=== PATIENT | male | born 1970 | race Caucasian/White ===

== ENCOUNTER 2019-05-04 15:53 | Emergency (ER) | payer SELFPAY ==
[2019-05-04] MEDS ORDERED: NA CHLORIDE 0.9% 500 ML ONE (16:20)
[2019-05-04] MEDS ORDERED: ONDANSETRON 4 MG/2 ML VIAL ONE (16:20)
[2019-05-04] MEDS ORDERED: MORPHINE 4 MG/ML SYR ONE (16:20)
[2019-05-04 16:43] LABS: Absolute Lymphocytes (CBC) 3.1 K/uL (0.7-4.9); Basophils % 0.7 % (0-1.3); Hematocrit 49.1 % (39.6-49.0); Lymphocytes % 29.6 % (15.3-44.8); MPV 8.4 fL (7.6-11.3)
[2019-05-04 17:04] LABS: ALT/SGPT 48 U/L (12-78); AST/SGOT 24 U/L (15-37); Albumin 3.6 g/dL (3.4-5.0); Alkaline Phosphatase 84 U/L (45-117); BUN Blood Urea Nitrogen 10 mg/dL (7-18); Bicarbonate 28 mmol/L (21-32); Bilirubin Direct < 0.1 mg/dL (0-0.2); Bilirubin Total 0.3 mg/dL (0.2-1.0); Glucose Level 98 mg/dL (74-106); Lipase 1394 U/L (73-393); Potassium 3.9 mmol/L (3.5-5.1); Protein, Total 7.5 g/dL (6.4-8.2); Sodium Level 140 mmol/L (136-145)
--- NOTE | 2019-05-04 17:38 | RAD REPORT ---
EXAM DESCRIPTION: CT - Abdomen Pelvis W Contrast - 05/04/2019 5:27 pm CLINICAL HISTORY: Abdominal pain COMPARISON: none. TECHNIQUE: Computed axial tomography of the abdomen pelvis was obtained. 100 cc Isovue-300 was admin istered intravenously. Oral contrast was not requested which limits evaluation of bowel. All CT scans are performed using dose optimization technique as appropriate and may include automated exposure control or mA/KV adjustment according to patient size. FINDINGS: The liver, spleen, pancreas, adrenal and kidneys appear unremarkable. There is no evidence of diverticulitis. Normal appendix IMPRESSION: No acute abnormality is displayed.
--- NOTE | 2019-05-04 18:00 | ER ---
Nurse's Notes [facility] Name: Jose Rudd Age: 49 yrs Sex: Male : 1970 Arrival Date: 05/04/2019 Time: 15:55 Bed 14 Private MD: Diagnosis: Abdominal and pelvic pain;Acute pancreatitis Presentation: 05/04 16:02 Presenting complaint: Patient states: L flank pain that radiates towards LUQ with abd ss bloating that began "a few weeks ago". Transition of care: patient was not received from another setting of care. Onset of symptoms was April 2019. Risk Assessment: Do you want to hurt yourself or someone else? Patient reports no desire to harm self or others. Initial Sepsis Screen: Does the patient meet any 2 criteria? No. Patient's initial sepsis screen is negative. Does the patient have a suspected source of infection? No. Patient's initial sepsis screen is negative. Care prior to arrival: None. 16:02 Method Of Arrival: Ambulatory ss 16:02 Acuity: TONY 3 ss Historical: - Allergies: 16:05 No Known Allergies; ss - Home Meds: 16:05 None [Active]; ss - PMHx: 16:05 None; ss - PSHx: 16:05 None; ss - Immunization history:: Adult Immunizations up to date. - Social history:: Smoking status: Patient/guardian denies using tobacco. - Ebola Screening: : Patient denies exposure to infectious person Patient denies travel to an Ebola-affected area in the 21 days before illness onset. Screenin:00 Fall Risk IV access (20 points). mg2 18:06 Abuse screen: Denies threats or abuse. Denies injuries from another. Nutritional mg2 screening: No deficits noted. Tuberculosis screening: No symptoms or risk factors identified. Assessment: 17:00 General: Appears in no apparent distress. comfortable, Behavior is calm, cooperative. mg2 Neuro: Level of Consciousness is awake, alert, obeys commands, Oriented to person, place, time, situation. Cardiovascular: Capillary refill < 3 seconds Patient's skin is warm and dry. Respiratory: Airway is patent Respiratory effort is even, unlabored, Respiratory pattern is regular, symmetrical. GI: Bowel sounds present X 4 quads. Abd is soft Reports lower abdominal pain, upper abdominal pain. : Urine is clear. EENT: No signs and/or symptoms were reported regarding the EENT system. Derm: Skin is intact, is healthy with good turgor, Skin is pink, warm \\T\\ dry. normal. Musculoskeletal: Circulation, motion, and sensation intact. Capillary refill < 3 seconds. 18:05 Pain: Complains of pain in left lower quadrant. mg2 Vital Signs: 16:02 BP 140 / 91; Pulse 85; Resp 16; Temp 98.9(TE); Pulse Ox 98% on R/A; Weight 104.33 kg; ss Height 5 ft. 9 in. (175.26 cm); Pain 5/10; 18:05 BP 122 / 88; Pulse 71; Resp 18; Pulse Ox 99% on R/A; mg2 16:02 Body Mass Index 33.96 (104.33 kg, 175.26 cm) ED Course: 15:55 Patient arrived in ED. mr 16:02 Arm band placed on right wrist. ss 16:04 Triage completed. ss 16:05 [facility]C [facility] la1 16:05 Stanislav Farris MD is Attending Physician. la1 16:24 Inserted saline lock: 22 gauge in right antecubital area, using aseptic technique. kj1 Blood collected. 16:25 Jericho Del Angel, KELSEY is Primary Nurse. mg2 16:28 Initial lab(s) drawn, by me, sent to lab. kj1 17:27 CT Abd/Pelvis - IV Contrast Only In Process Unspecified. EDMS 18:06 Patient has correct armband on for positive identification. mg2 18:07 No provider procedures requiring assistance completed. mg2 18:29 IV discontinued, intact, bleeding controlled, No redness/swelling at site. Pressure mg2 dressing applied. Administered Medications: 16:29 Drug: NS 0.9% 500 ml Route: IV; Rate: bolus; Site: right antecubital; mg2 18:07 Follow up: Response: No adverse reaction; IV Status: Completed infusion; IV Intake: mg2 500ml 16:30 Drug: morphine 4 mg Route: IVP; Site: right antecubital; mg2 18:08 Follow up: Response: No adverse reaction; Marked relief of symptoms; RASS: Alert and mg2 Calm (0) 16:30 Drug: Zofran 4 mg Route: IVP; Site: right antecubital; mg2 18:07 Follow up: Response: No adverse reaction; Marked relief of symptoms mg2 Intake: 18:07 IV: 500ml; Total: 500ml. mg2 Outcome: 17:58 Discharge ordered by MD. coleman 18:29 Discharged to home ambulatory. mg2 18:29 Condition: good 18:29 Discharge instructions given to patient, Instructed on discharge instructions, follow up and referral plans. medication usage, Demonstrated understanding of instructions, follow-up care, medications, Prescriptions given X 3. 18:29 Patient left the ED. mg2 Signatures: Dispatcher [employer] Mariya Sharma mr Terese Minor, RN RN ss Fabio Jacobo, PSYCHOLOGIST RESEARCH ASSISTANT-C PSYCHOLOGIST RESEARCH ASSISTANT-Cla1 Jericho Del Angel RN RN mg2 Ginger Figueroa1
--- NOTE | 2019-05-04 18:00 | EDPHYS ---
Physician Documentation [facility] Name: Jose Rudd Age: 49 yrs Sex: Male : 1970 Arrival Date: 05/04/2019 Time: 15:55 Bed 14 Private MD: ED Physician Stanislav Farris HPI: 05/04 16:20 This 49 yrs old Male presents to ER via Ambulatory with complaints of la1 Abdominal Pain, Abdominal Swelling. 16:20 The patient presents with abdominal pain abdominal distention. Onset: The la1 symptoms/episode began/occurred 1 week(s) ago. The symptoms do not radiate. The symptoms are described as sharp. Modifying factors: The symptoms are alleviated by nothing, the symptoms are aggravated by alcohol. Severity of pain: At its worst the pain was moderate. The patient has not experienced similar symptoms in the past. Historical: - Allergies: 16:05 No Known Allergies; ss - Home Meds: 16:05 None [Active]; ss - PMHx: 16:05 None; ss - PSHx: 16:05 None; ss - Immunization history:: Adult Immunizations up to date. - Social history:: Smoking status: Patient/guardian denies using tobacco. - Ebola Screening: : Patient denies exposure to infectious person Patient denies travel to an Ebola-affected area in the 21 days before illness onset. ROS: 16:22 Constitutional: Negative for fever, chills, and weight loss, Eyes: Negative for injury, la1 pain, redness, and discharge, ENT: Negative for injury, pain, and discharge, Neck: Negative for injury, pain, and swelling, Cardiovascular: Negative for chest pain, palpitations, and edema, Respiratory: Negative for shortness of breath, cough, wheezing, and pleuritic chest pain. 16:22 Back: Negative for injury and pain, : Negative for injury, bleeding, discharge, and swelling, MS/Extremity: Negative for injury and deformity, Neuro: Negative for headache, weakness, numbness, tingling, and seizure. 16:22 Abdomen/GI: Positive for abdominal pain. Exam: 16:23 Constitutional: This is a well developed, well nourished patient who is awake, alert, la1 and in no acute distress. Head/Face: Normocephalic, atraumatic. Eyes: Pupils equal round and reactive to light, extra-ocular motions intact. Lids and lashes normal. Conjunctiva and sclera are non-icteric and not injected. Cornea within normal limits. Periorbital areas with no swelling, redness, or edema. ENT: Mucous membranes moist. Neck: No Meningismus. Chest/axilla: Normal chest wall appearance and motion. Nontender with no deformity. No lesions are appreciated. Cardiovascular: Regular rate and rhythm with a normal S1 and S2. No gallops, murmurs, or rubs. Normal PMI, no JVD. No pulse deficits. Respiratory: Lungs have equal breath sounds bilaterally, clear to auscultation No rales, rhonchi or wheezes noted. No increased work of breathing, no retractions or nasal flaring. 16:23 Abdomen/GI: Inspection: abdomen appears normal, Bowel sounds: normal, Palpation: soft, in all quadrants, mild abdominal tenderness, in the suprapubic area and left lower quadrant, Indicators: McBurney's point is not tender, Mancia's sign is negative, Rovsing's sign is negative, Obturator sign is negative, Psoas sign is negative. Vital Signs: 16:02 BP 140 / 91; Pulse 85; Resp 16; Temp 98.9(TE); Pulse Ox 98% on R/A; Weight 104.33 kg; ss Height 5 ft. 9 in. (175.26 cm); Pain 5/10; 18:05 BP 122 / 88; Pulse 71; Resp 18; Pulse Ox 99% on R/A; mg2 16:02 Body Mass Index 33.96 (104.33 kg, 175.26 cm) ss MDM: 16:05 Patient medically screened. la1 17:56 Data reviewed: vital signs, nurses notes, radiologic studies, I have discussed the la1 patient's presentation/case with the attending Emergency Department Physician; and as a result, I will discharge patient. Data interpreted: Pulse oximetry: on room air is 98 %. Counseling: I had a detailed discussion with the patient and/or guardian regarding: the historical points, exam findings, and any diagnostic results supporting the discharge/admit diagnosis, the presence of at least one elevated blood pressure reading (>120/80) during this emergency department visit, lab results, radiology results, the need for outpatient follow up. Medication response: Response to treatment: the patient's symptoms have markedly improved after treatment. Special discussion: Based on the patient's Hx, exam, and Dx evaluation, there is no indication for emergent surgery or inpatient Tx. It is understood by the patient/guardian that if the Sx's persist or worsen they need to return immediately for re-evaluation. I discussed with the patient/guardian that the patient's current presentation does not indicate dosing of antibiotics. They should follow-up with their primary care provider and return if the symptoms persist or progress. ED course: Pt offered admission for apparent pancreatitis, pt declined, states he wants to go home on clear liquids for a few days and see if he gets better that way, strict return precautions given. Pt not vomiting, vital signs WNL, no signs of complications of pancreatitis on CT. PT reliable with transportation and social support. Pt verbalizes understanding of return precautions. . 18:10 Refusal of service: The patient/guardian displays adequate decision making capability la1 and despite a detailed discussion of alternatives, benefits, risks, and consequences refuses: Admission to the hospital for further work-up and treatment. 05/04 16:14 Order name: Basic Metabolic Panel; Complete Time: 17:47 la05/04 16:14 Order name: CBC with Diff; Complete Time: 17:47 la05/04 16:14 Order name: Creatinine for Radiology; Complete Time: 17:47 la05/04 16:14 Order name: Hepatic Function; Complete Time: 17:47 la05/04 16:14 Order name: Lipase; Complete Time: 17:47 la05/04 16:14 Order name: CT Abd/Pelvis - IV Contrast Only; Complete Time: 17:47 la05/04 16:14 Order name: IV Saline Lock; Complete Time: 16:25 la05/04 16:14 Order name: Labs collected and sent; Complete Time: 16:25 la1 Administered Medications: 16:29 Drug: NS 0.9% 500 ml Route: IV; Rate: bolus; Site: right antecubital; mg2 18:07 Follow up: Response: No adverse reaction; IV Status: Completed infusion; IV Intake: mg2 500ml 16:30 Drug: morphine 4 mg Route: IVP; Site: right antecubital; mg2 18:08 Follow up: Response: No adverse reaction; Marked relief of symptoms; RASS: Alert and mg2 Calm (0) 16:30 Drug: Zofran 4 mg Route: IVP; Site: right antecubital; mg2 18:07 Follow up: Response: No adverse reaction; Marked relief of symptoms mg2 Disposition: 05/04/19 17:58 Discharged to Home. Impression: Abdominal and pelvic pain, Acute pancreatitis. - Condition is Stable. - Discharge Instructions: Abdominal Pain, Adult, Clear Liquid Diet, Adult, Acute Pancreatitis, Acute Pancreatitis, [id number], Abdominal Pain, Adult, [id number]. - Prescriptions for Bentyl 20 mg Oral Tablet - take 1 tablet by ORAL route every 6 hours As needed; 20 tablet. Tylenol- Codeine #3 300-30 mg Oral Tablet - take 2 tablets by ORAL route every 6 hours As needed; 20 tablet. Zofran 4 mg Oral Tablet - take 1 tablet by ORAL route every 12 hours As needed; 6 tablet. - Medication Reconciliation Form, Thank You Letter, Prescription Opioid Use form. - Follow up: Private Physician; When: 2 - 3 days; Reason: Recheck today's complaints, Re-evaluation by your physician. Follow up: Emergency Department; When: As needed; Reason: Worsening of condition. Addendum: 05/07/2019 06:58 Co-signature as Attending Physician, Stanislav Farris MD I agree with the assessment and k dr plan of care. Signatures: Dispatcher [employer] EDStanislav Pagan MD MD [facility] Terese Minor RN RN ss Fabio Jacobo, SIGNAL WIRER-C SIGNAL WIRER-Cla1 Jericho Del Angel RN RN mg2 Corrections: (The following items were deleted from the chart) 05/04 18:29 17:58 05/04/2019 17:58 Discharged to Home. Impression: Abdominal and pelvic pain; Acute mg2 pancreatitis. Condition is Stable. Forms are Medication Reconciliation Form, Thank You Letter, Antibiotic Education, Prescription Opioid Use. Follow up: Private Physician; When: 2 - 3 days; Reason: Recheck today's complaints, Re-evaluation by your physician. Follow up: Emergency Department; When: As needed; Reason: Worsening of condition. la1
[2019-05-04 19:29] VITALS: TEMP 98.9
[2019-05-04 19:31] VITALS: BP 122/88; O2SAT 99
== END 2019-05-04 18:29 | disposition home or self-care (01) ==
LOC: ER 15:53
DX: K85.90 Acute pancreatitis without necrosis or infection, unspecified (principal)
CPT/HCPCS: 36415; 74177; 80048; 80076; 83690; 85025; 96361; 96374; 96375; 99284; J2405; J7040; Q9967

== ENCOUNTER 2019-07-03 14:25 | Emergency (ER) | payer OTHER, SELFPAY ==
--- NOTE | 2019-07-03 15:12 | RAD REPORT ---
EXAM DESCRIPTION: Jet Single View07/03/2019 3:04 pm CLINICAL HISTORY: Chest pain COMPARISON: 2016 FINDINGS: The lungs appear clear of acute infiltrate. The heart is normal size IMPRESSION: No acute abnormalities displayed
[2019-07-03 15:16] LABS: Absolute Lymphocytes (CBC) 3.3 K/uL (0.7-4.9); Basophils % 0.9 % (0-1.3); Hematocrit 48.4 % (39.6-49.0); Lymphocytes % 39.4 % (15.3-44.8); MPV 8.3 fL (7.6-11.3); RBC Red Blood Cell Count 5.29 M/uL (4.33-5.43)
[2019-07-03 15:20] LABS: Protime INR 1.05
[2019-07-03 15:50] LABS: ALT/SGPT 38 U/L (12-78); AST/SGOT 18 U/L (15-37); Albumin 3.4 g/dL (3.4-5.0); Alkaline Phosphatase 81 U/L (45-117); BUN Blood Urea Nitrogen 10 mg/dL (7-18); Bicarbonate 27 mmol/L (21-32); Bilirubin Direct 0.2 mg/dL (0-0.2); Bilirubin Total 0.5 mg/dL (0.2-1.0); Glucose Level 134 mg/dL (74-106); Lipase 148 U/L (73-393); Magnesium 2.1 mg/dL (1.8-2.4); NT PRO-BNP 71 pg/mL (<125); Protein, Total 7.8 g/dL (6.4-8.2); Sodium Level 140 mmol/L (136-145); Troponin (Emerg Dept Use Only) < 0.02 ng/mL (0.0-0.045)
--- NOTE | 2019-07-03 17:26 | EDPHYS ---
Physician Documentation [facility] Name: Jose Rudd Age: 49 yrs Sex: Male : 1970 Arrival Date: 07/03/2019 Time: 14:28 Bed 6 Private MD: None, None ED Physician Dylan Malone HPI: 07/02 17:23 This 49 yrs old Male presents to ER via Ambulatory with complaints of Chest ma2 Pain. 17:23 The patient or guardian reports chest pain that is located primarily in the substernal ma2 area. Onset: gradually, 1 day(s) ago. Associated signs and symptoms: Pertinent negatives: cough, dizziness, lower extremity pain, lightheadedness. Severity of pain: At its worst the pain was mild in the emergency department the pain is unchanged. The patient has not experienced similar symptoms in the past. Historical: - Allergies: 14:36 No Known Allergies; ca1 - Home Meds: 14:36 None [Active]; ca1 - PMHx: 14:36 Acid Reflux; Pancreatitis; ca1 - PSHx: 14:36 None; ca1 - Immunization history:: Adult Immunizations up to date, Flu vaccine is not up to date. - Social history:: Smoking status: Patient denies any tobacco usage or history of. Patient/guardian denies using alcohol, street drugs, The patient lives alone. - Family history:: not pertinent. ROS: 17:23 Constitutional: Negative for fever, chills, and weight loss. ma2 17:23 All other systems are negative. Exam: 17:23 Constitutional: This is a well developed, well nourished patient who is awake, alert, ma2 and in no acute distress. Head/Face: Normocephalic, atraumatic. Eyes: Pupils equal round and reactive to light, extra-ocular motions intact. Lids and lashes normal. Conjunctiva and sclera are non-icteric and not injected. Cornea within normal limits. Periorbital areas with no swelling, redness, or edema. ENT: Nares patent. No nasal discharge, no septal abnormalities noted. Tympanic membranes are normal and external auditory canals are clear. Oropharynx with no redness, swelling, or masses, exudates, or evidence of obstruction, uvula midline. Mucous membranes moist. Neck: Trachea midline, no thyromegaly or masses palpated, and no cervical lymphadenopathy. Supple, full range of motion without nuchal rigidity, or vertebral point tenderness. No Meningismus. Chest/axilla: Normal chest wall appearance and motion. Nontender with no deformity. No lesions are appreciated. Cardiovascular: Regular rate and rhythm with a normal S1 and S2. No gallops, murmurs, or rubs. Normal PMI, no JVD. No pulse deficits. Respiratory: Lungs have equal breath sounds bilaterally, clear to auscultation and percussion. No rales, rhonchi or wheezes noted. No increased work of breathing, no retractions or nasal flaring. Abdomen/GI: Soft, non-tender, with normal bowel sounds. No distension or tympany. No guarding or rebound. No evidence of tenderness throughout. Skin: Warm, dry with normal turgor. Normal color with no rashes, no lesions, and no evidence of cellulitis. MS/ Extremity: Pulses equal, no cyanosis. Neurovascular intact. Full, normal range of motion. Neuro: Awake and alert, GCS 15, oriented to person, place, time, and situation. Cranial nerves II-XII grossly intact. Motor strength 5/5 in all extremities. Sensory grossly intact. Cerebellar exam normal. Normal gait. Vital Signs: 14:32 BP 120 / 89; Pulse 81; Resp 17 S; Temp 97.8(O); Pulse Ox 95% on R/A; Weight 106.59 kg ca1 (R); Height 5 ft. 8 in. (172.72 cm) (R); 15:43 BP 128 / 76; Pulse 65; Resp 16; Pulse Ox 97% ; bp 16:00 BP 126 / 81; Pulse 68; Resp 17; Pulse Ox 97% ; bp 17:00 BP 118 / 83; Pulse 57; Resp 16; Pulse Ox 96% ; bp 18:00 BP 126 / 81; Pulse 63; Resp 17; Pulse Ox 97% ; bp 18:48 BP 123 / 70; Pulse 65; Resp 17; Temp 97.5; Pulse Ox 98% ; bp 14:32 Body Mass Index 35.73 (106.59 kg, 172.72 cm) ca1 MDM: 14:38 Patient medically screened. ma2 17:23 Differential diagnosis: abnormal EKG, gastroesophageal reflux disease (GERD), stable ma2 angina. HEART Score: History: Moderately Suspicious (1), ECG: Normal (0), Age: > 45 and < 65 years (1), Risk Factors: > or = 3 Risk factors for atherosclerotic disease (2), Total Score = 6. The patient's deep vein thrombosis risk score was calculated as follows: the patient is receiving ongoing or pallative cancer treatment (1.0 Pts). The patient's deep vein thrombosis risk score was calculated as follows: the patient is receiving ongoing or pallative cancer treatment (1.0 Pts) Total Score: 0. This patient was found to be at low risk for a deep vein thrombosis by using the Well's assessment criteria. SCOTT Risk Score: not applicable. Data reviewed: vital signs, nurses notes. Counseling: I had a detailed discussion with the patient and/or guardian regarding: the historical points, exam findings, and any diagnostic results supporting the discharge/admit diagnosis, the presence of at least one elevated blood pressure reading (>120/80) during this emergency department visit, the need for outpatient follow up. Response to treatment: the patient's symptoms have mildly improved after treatment. 18:00 HEART Score: History: Slightly Suspicious (0), ECG: Age: Risk Factors: No Risk Factors ma2 Known (0), Troponin: < or = 1 x Normal Limit (0), Total Score = 0. SCOTT Risk Score: TOTAL SCORE = 0. ED course: patient changed his mind does not want to stay, he agree to do another troponin and go home, scott score is zero . 18:05 ED course: chest pain is reproducible on exam. left sided worse with deep breath and ma2 now rsolved, i. 07/02 14:39 Order name: Basic Metabolic Panel; Complete Time: 16:52 ma2 07/02 14:39 Order name: CBC with Diff; Complete Time: 16:52 ma2 07/02 14:39 Order name: LFT's; Complete Time: 16:52 ma2 07/02 14:39 Order name: Magnesium; Complete Time: 16:52 ma2 07/02 14:39 Order name: NT PRO-BNP; Complete Time: 16:52 ma2 07/02 14:39 Order name: PT-INR; Complete Time: 16:52 ma2 07/02 14:39 Order name: Troponin (emerg Dept Use Only); Complete Time: 16:52 ma2 07/02 14:39 Order name: XRAY Chest (1 view); Complete Time: 16:52 [facility] 07/02 14:39 Order name: EKG; Complete Time: 14:40 ct2 07/02 14:39 Order name: Cardiac monitoring; Complete Time: 14:56 [facility] 07/02 14:39 Order name: EKG - Nurse/Tech; Complete Time: 14:47 [facility] 07/02 14:39 Order name: Lipase; Complete Time: 16:52 [facility] 07/02 17:57 Order name: Troponin I; Complete Time: 18:55 [facility] 07/02 14:39 Order name: IV Saline Lock; Complete Time: 15:14 [facility] 07/02 14:39 Order name: Labs collected and sent; Complete Time: 15:14 [facility] 07/02 14:39 Order name: O2 Per Protocol; Complete Time: 14:47 [facility] 07/02 14:39 Order name: O2 Sat Monitoring; Complete Time: 14:47 ma2 Administered Medications: 17:40 Drug: Aspirin Chewable Tablet 324 mg Route: PO; bp 18:49 Follow up: Response: No adverse reaction bp Disposition: 07/03/19 18:45 Discharged to Home. Impression: Chest pain on breathing. - Condition is Stable. - Discharge Instructions: Chest Wall Pain. - Prescriptions for Tylenol- Codeine #3 300-30 mg Oral Tablet - take 2 tablet by ORAL route every 6 hours As needed; 30 tablet. - Medication Reconciliation Form, Thank You Letter, Antibiotic Education, Prescription Opioid Use form. - Follow up: Private Physician; When: Tomorrow; Reason: Continuance of care. Signatures: Dispatcher [employer] Earl Mcleod RN RN bp Dylan Malone MD MD ct2 Jaimee Jurado RN RN ca1 Corrections: (The following items were deleted from the chart) 17:58 17:25 Hospitalization Ordered by John Sharma DO for Observation. Preliminary ma2 diagnosis is Chest pain, unspecified. Bed requested for Telemetry/MedSurg (observation). Status is Observation. Condition is Stable. Problem is new. Symptoms are unchanged. [facility] 18:57 18:45 07/03/2019 18:45 Discharged to Home. Impression: Chest pain on breathing. bp Condition is Stable. Discharge Instructions: Chest Wall Pain. Prescriptions for Tylenol-Codeine #3 300-30 mg Oral Tablet - take 2 tablet by ORAL route every 6 hours As needed; 30 tablet. and Forms are Medication Reconciliation Form, Thank You Letter, Antibiotic Education, Prescription Opioid Use. Follow up: Private Physician; When: Tomorrow; Reason: Continuance of care. ma2
--- NOTE | 2019-07-03 17:26 | ER ---
Nurse's Notes [facility] Name: Jose Rudd Age: 49 yrs Sex: Male : 1970 Arrival Date: 07/03/2019 Time: 14:28 Bed 6 Private MD: None, None Diagnosis: Chest pain on breathing Presentation: 07/02 14:32 Chief complaint: Patient states: Chest pain since couple days, worst today. It was more ca1 in the middle before, but today more on the upper L side of chest. It comes and goes and hurts more when I swallow. Reports history of acid reflux and pancreatitis. Coronavirus screen: The patient has NOT traveled to [place] in the past 14 days. The patient has NOT had contact with known and/or suspected case of Coronavirus. Ebola Screen: Patient negative for fever greater than or equal to 101.5 degrees Fahrenheit, and additional compatible Ebola Virus Disease symptoms Patient denies exposure to infectious person. Patient denies travel to an Ebola-affected area in the 21 days before illness onset. No symptoms or risks identified at this time. Initial Sepsis Screen: Does the patient meet any 2 criteria? No. Patient's initial sepsis screen is negative. Does the patient have a suspected source of infection? No. Patient's initial sepsis screen is negative. Risk Assessment: Do you want to hurt yourself or someone else? Patient reports no desire to harm self or others. Onset of symptoms was July 03, 2019. 14:32 Method Of Arrival: Ambulatory ca1 14:32 Acuity: TONY 3 ca1 Triage Assessment: 14:40 General: Appears in no apparent distress. comfortable, Behavior is calm, cooperative, bp appropriate for age. Pain: Complains of pain in chest. EENT: No deficits noted. Neuro: No deficits noted. Cardiovascular: Rhythm is sinus rhythm. Respiratory: No deficits noted. GI: No signs and/or symptoms were reported involving the gastrointestinal system. : No signs and/or symptoms were reported regarding the genitourinary system. Derm: No deficits noted. Musculoskeletal: No deficits noted. Historical: - Allergies: 14:36 No Known Allergies; ca1 - Home Meds: 14:36 None [Active]; ca1 - PMHx: 14:36 Acid Reflux; Pancreatitis; ca1 - PSHx: 14:36 None; ca1 - Immunization history:: Adult Immunizations up to date, Flu vaccine is not up to date. - Social history:: Smoking status: Patient denies any tobacco usage or history of. Patient/guardian denies using alcohol, street drugs, The patient lives alone. - Family history:: not pertinent. Screenin:00 Abuse screen: Denies threats or abuse. Denies injuries from another. Nutritional bp screening: No deficits noted. Tuberculosis screening: No symptoms or risk factors identified. Fall Risk None identified. Assessment: 14:40 General: SEE TRIAGE NOTE. bp 15:44 Reassessment: Patient appears in no apparent distress at this time. Patient denies pain bp at this time. Cardiovascular: Rhythm is sinus rhythm. 16:30 Reassessment: PT RESTING, ALL STUDIES RESULTED AND UNREMARKABLE. VS STABLE ON MONITOR. bp 17:14 Reassessment: AT B/S FOR RE-EVAL Patient states symptoms have improved. bp 17:32 Reassessment: DR ISSA AT B/S FOR ADMIT. VS STABLE ON MONITOR. bp 18:32 Reassessment: REPEAT TROPONIN DRAWN AND SENT. PT ASYMPTOMATIC AT THIS TIME. bp 18:49 Reassessment: PT D/C HOME AMBULATORY, DX WITH CHEST WALL PAIN. bp Vital Signs: 14:32 BP 120 / 89; Pulse 81; Resp 17 S; Temp 97.8(O); Pulse Ox 95% on R/A; Weight 106.59 kg ca1 (R); Height 5 ft. 8 in. (172.72 cm) (R); 15:43 BP 128 / 76; Pulse 65; Resp 16; Pulse Ox 97% ; bp 16:00 BP 126 / 81; Pulse 68; Resp 17; Pulse Ox 97% ; bp 17:00 BP 118 / 83; Pulse 57; Resp 16; Pulse Ox 96% ; bp 18:00 BP 126 / 81; Pulse 63; Resp 17; Pulse Ox 97% ; bp 18:48 BP 123 / 70; Pulse 65; Resp 17; Temp 97.5; Pulse Ox 98% ; bp 14:32 Body Mass Index 35.73 (106.59 kg, 172.72 cm) ca1 ED Course: 14:28 Patient arrived in ED. mr 14:29 None, None is Private Physician. mr 14:35 Triage completed. ca1 14:36 Arm band placed on right wrist. ca1 14:38 Earl Colin, KELSEY is Primary Nurse. bp 14:38 Dylan Malone MD is Attending Physician. ma2 14:57 EKG done, by ED staff, reviewed by Dylan Malone MD. at1 15:00 Patient has correct armband on for positive identification. Bed in low position. Call bp light in reach. Side rails up X2. Pulse ox on. NIBP on. 15:09 XRAY Chest (1 view) In Process Unspecified. EDMS 15:10 Inserted saline lock: 20 gauge in right forearm, using aseptic technique. Blood bp collected. Patient maintains SpO2 saturation greater than 95% on room air. 17:25 John Issa DO is Hospitalizing Provider. ma2 18:49 No provider procedures requiring assistance completed. IV discontinued, intact, bp bleeding controlled, No redness/swelling at site. Pressure dressing applied. Administered Medications: 17:40 Drug: Aspirin Chewable Tablet 324 mg Route: PO; bp 18:49 Follow up: Response: No adverse reaction bp Outcome: 17:25 Decision to Hospitalize by Provider. ma2 18:45 Discharge ordered by . ma2 18:49 Discharged to home ambulatory. bp 18:49 Condition: stable 18:49 Discharge instructions given to patient, Instructed on discharge instructions, follow up and referral plans. medication usage, Demonstrated understanding of instructions, follow-up care, medications, Prescriptions given X 1. 18:57 Patient left the ED. bp Signatures: Dispatcher [employer] EDMA Mariya Vázquez Amanda, [employer] res[employer] EKG Tat1 Earl Colin, RN RN bp Dylan Malone MD MD ma2 Jaimee Jurado RN RN ca1
[2019-07-03] MEDS ORDERED: ASPIRIN 81 MG CHEWABLE TABLET ONE (17:40)
[2019-07-03 20:11] VITALS: BP 123/70; TEMP 97.5; O2SAT 98
--- NOTE | 2019-07-04 08:25 | EKG ---
Test Date: 2019-07-03 Test Time: 14:45:06 Pe Electrical Engineer: SHABANA MEASUREMENT RESULTS: Intervals: Rate: 75 MN: 124 QRSD: 78 QT: 414 QTc: 462 [place]: P: 30 MN: 124 QRS: 65 T: 44 INTERPRETIVE STATEMENTS: Normal sinus rhythm Prolonged QT Abnormal ECG Compared to ECG 07/22/2016 18:37:49 Prolonged QT interval now present Electronically Signed On 07-04-19 08:24:38 MACHINE [employer]ORTH[employer] TEACHER by Adrien Conti
== END 2019-07-03 18:57 | disposition home or self-care (01) ==
LOC: ER 14:25
DX: R07.1 Chest pain on breathing (principal)
CPT/HCPCS: 36415; 71045; 80048; 80076; 83690; 83735; 83880; 84484; 85025; 85610; 93005; 99285

== ENCOUNTER 2020-10-17 15:25 | Emergency (ER) | payer OTHER ==
[2020-10-17 16:11] LABS: Absolute Lymphocytes (CBC) 3.6 K/uL (0.7-4.9); Basophils % 0.6 % (0-1.3); Hematocrit 46.9 % (39.6-49.0); Lymphocytes % 28.1 % (15.3-44.8); MPV 8.7 fL (7.6-11.3); RBC Red Blood Cell Count 5.16 M/uL (4.33-5.43)
[2020-10-17] MEDS ORDERED: NA CHLORIDE 0.9% 1,000 ML ONE (16:26)
[2020-10-17 16:33] LABS: ALT/SGPT 33 U/L (12-78); AST/SGOT 17 U/L (15-37); Albumin 3.5 g/dL (3.4-5.0); Alkaline Phosphatase 92 U/L (45-117); BUN Blood Urea Nitrogen 10 mg/dL (7-18); Bicarbonate 29 mmol/L (21-32); Bilirubin Direct 0.1 mg/dL (0-0.2); Bilirubin Total 0.4 mg/dL (0.2-1.0); Glucose Level 103 mg/dL (74-106); Lipase 79 U/L (73-393); Potassium 4.1 mmol/L (3.5-5.1); Protein, Total 7.7 g/dL (6.4-8.2); Sodium Level 139 mmol/L (136-145)
--- NOTE | 2020-10-17 17:10 | RAD REPORT ---
EXAM DESCRIPTION: CT - Abdomen Pelvis W Contrast - 10/17/2020 4:46 pm CLINICAL HISTORY: back pain, abdominal pain COMPARISON: CT study May 2019 TECHNIQUE: Biphasic, helical CT imaging of the abdomen and pelvis was performed following 100 ml non -ionic IV contrast. No oral contrast administered. All CT scans are performed using dose optimization technique as appropriate and may include automated exposure control or mA/KV adjustment according to patient size. FINDINGS: No suspicious findings in the lung bases. Diffuse fatty infiltration seen in the liver. No focal liver lesion. No portal vein abnormality. Sple en and pancreas show no suspicious findings. Gallbladder and biliary tree are also without suspicious finding. Symmetric renal function is seen with no hydronephrosis or suspicious renal mass. No pyelonephritis o r acute parenchymal process. Urinary bladder is tightly contracted limiting assessment. No adrenal ab normalities. No dilated bowel loops or bowel wall thickening. Mild sigmoid and descending colon diverticulosis pre sent without diverticulitis. No colon wall thickening or mass. Appendix is unremarkable. No free air, free fluid or inflammatory stranding. No hernia, mass or bulky lymphadenopathy. No suspicious bony findings. IMPRESSION: Contrast enhanced CT abdomen and pelvis showing no acute or emergent finding. Above detailed findings are without significant change from May 2019.
[2020-10-17 17:51] LABS: Urine Blood Trace-intact (Negative); Urine Glucose Negative (Negative); Urine Protein 2+ (Negative); Urine Specific Gravity 1.025 (1.005-1.030)
--- NOTE | 2020-10-17 18:53 | ER ---
Nurse's Notes [facility] Name: Jose Rudd Age: 50 yrs Sex: Male : 1970 Arrival Date: 10/17/2020 Time: 15:27 Bed 15 Private MD: Diagnosis: Generalized abdominal pain Presentation: 10/17 15:34 Chief complaint: Patient states: Not feeling well for about 6 weeks. Started having abd ll1 distension and pain for 3-4 weeks. Bilateral low back pain since last night. No fever. Reported blood in stool today. Coronavirus screen: Client denies travel out of the [place] in the last 14 days. At this time, the client does not indicate any symptoms associated with coronavirus-19. Ebola Screen: Patient denies travel to an Ebola-affected area in the 21 days before illness onset. Initial Sepsis Screen: Does the patient meet any 2 criteria? No. Patient's initial sepsis screen is negative. Does the patient have a suspected source of infection? Yes: Acute abdominal pain. Risk Assessment: Do you want to hurt yourself or someone else? Patient reports no desire to harm self or others. Onset of symptoms was September 05, 2020. 15:34 Method Of Arrival: Ambulatory ll1 15:34 Acuity: TONY 3 ll1 Historical: - Allergies: 15:33 No Known Allergies; ll1 - PMHx: 15:33 Pancreatitis; acid reflux; ll1 - PSHx: 15:33 None; ll1 - Immunization history:: Client reports having NOT received the Covid vaccine. Flu vaccine status is unknown. - Social history:: Smoking status: Patient denies any tobacco usage or history of. Screenin:10 Abuse screen: Denies threats or abuse. Denies injuries from another. Nutritional zb screening: No deficits noted. Tuberculosis screening: No symptoms or risk factors identified. Fall Risk None identified. Assessment: 16:20 General: Appears in no apparent distress. uncomfortable, Behavior is anxious. Pain: zb Complains of pain in back, abdomen and suprapubic area Pain does not radiate. Pain currently is 0 out of 10 on a pain scale. at worst was 7 out of 10 on a pain scale. Quality of pain is described as aching, dull, pressure, Is intermittent, episodic. Neuro: Level of Consciousness is awake, alert, obeys commands, Oriented to person, place, time, Centrifugal Separator are equal bilaterally Moves all extremities. Full function. Cardiovascular: Patient's skin is warm and dry. Respiratory: Airway is patent Respiratory effort is even, unlabored. GI: Abdomen is round distended, obese, Bowel sounds present X 4 quads. Abdomen is tender to palpation X 4 quads. Reports constipation, Patient currently denies nausea, vomiting. : Reports urgency. Derm: Skin is normal. Musculoskeletal: Range of motion: intact in all extremities. Vital Signs: 15:34 BP 127 / 79; Pulse 92; Resp 17; Temp 98.5; Pulse Ox 96% on R/A; Weight 112.94 kg; ll1 Height 5 ft. 9 in. (175.26 cm); Pain 7/10; 16:00 BP 122 / 90; Pulse 72; Resp 16; Pulse Ox 93% on NC; zb 18:00 BP 139 / 85; Pulse 64; Resp 19; Pulse Ox 94% on R/A; zb 15:34 Body Mass Index 36.77 (112.94 kg, 175.26 cm) ll1 ED Course: 15:27 Patient arrived in ED. ds1 15:33 Arm band placed on. ll1 15:36 Triage completed. 1 15:38 Abdi Starkey PA is PHCP. [facility] 15:38 Dylan Malone MD is Attending Physician. [facility] 16:03 Abbey Garcia, KELSEY is Primary Nurse. zb 16:05 No provider procedures requiring assistance completed. Initial lab(s) drawn, by ks, ca1 sent to lab. Inserted saline lock: 20 gauge in left antecubital area, using aseptic technique. Blood collected. 16:46 CT Abd/Pelvis - IV Contrast Only In Process Unspecified. EDMS 18:52 Cassy Benito MD is Referral Physician. jmm 19:10 Patient has correct armband on for positive identification. Pulse ox on. NIBP on. zb 19:10 IV discontinued, intact, bleeding controlled, No redness/swelling at site. Pressure zb dressing applied. Administered Medications: 16:09 Drug: NS 0.9% 1000 ml Route: IV; Rate: 1000 ml; Site: left antecubital; ca1 Outcome: 18:53 Discharge ordered by . jmm 19:09 Discharged to home ambulatory. zb 19:09 Condition: stable 19:09 Discharge instructions given to patient, Instructed on discharge instructions, follow up and referral plans. medication usage, Demonstrated understanding of instructions, follow-up care, medications, Prescriptions given X 2. 19:11 Patient left the ED. vidya Signatures: Dispatcher [employer] EDMS Abdi Starkey PA PA jmm Sanford, Demi ds1 Jaimee Jurado RN RN ca1 Abdiel Archer RN RN ll1 Abbey Garcia RN RN zb
--- NOTE | 2020-10-17 18:53 | EDPHYS ---
Physician Documentation [facility] Name: Jose Rudd Age: 50 yrs Sex: Male : 1970 Arrival Date: 10/17/2020 Time: 15:27 Bed 15 Private MD: ED Physician Dylan Malone HPI: 10/17 15:25 This 50 yrs old Male presents to ER via Ambulatory with complaints of Kidney jmm Pain. 15:25 The patient presents with abdominal pain. Onset: The symptoms/episode began/occurred jmm gradually, 2 week(s) ago. The symptoms do not radiate. Associated signs and symptoms: Pertinent positives: Pertinent negatives: fever. The symptoms are described as achy. Modifying factors: The symptoms are alleviated by nothing, the symptoms are aggravated by nothing. The patient has experienced similar episodes in the past. This is a 50 year old male with a history of pancreatitis that presents to the ED with complaints of bilateral flank pain, abdominal pain. Rectal discomfort and difficulty with bowel movements. . Historical: - Allergies: 15:33 No Known Allergies; ll1 - PMHx: 15:33 Pancreatitis; acid reflux; ll1 - PSHx: 15:33 None; ll1 - Immunization history:: Client reports having NOT received the Covid vaccine. Flu vaccine status is unknown. - Social history:: Smoking status: Patient denies any tobacco usage or history of. ROS: 18:47 Constitutional: Negative for fever, chills, and weight loss, Cardiovascular: Negative jmm for chest pain, palpitations, and edema, Respiratory: Negative for shortness of breath, cough, wheezing, and pleuritic chest pain. 18:47 Abdomen/GI: Positive for abdominal pain. 18:47 All other systems are negative. Exam: 18:47 Constitutional: This is a well developed, well nourished patient who is awake, alert, jmm and in no acute distress. Head/Face: atraumatic. Eyes: EOMI, no conjunctival erythema appreciated ENT: Moist Mucus Membranes Neck: Trachea midline, Supple Chest/axilla: Normal chest wall appearance and motion. Cardiovascular: Regular rate and rhythm. No edema appreciated Respiratory: Normal respirations, no respiratory distress appreciated 18:47 Back: Normal ROM Skin: General appearance color normal MS/ Extremity: Moves all extremities, no obvious deformities appreciated, no edema noted to the lower extremities Neuro: Awake and alert, normal gait Psych: Behavior is normal, Mood is normal, Patient is cooperative and pleasant 18:47 Abdomen/GI: Inspection: obese Bowel sounds: normal, Palpation: soft, mild abdominal tenderness, in all quadrants. Vital Signs: 15:34 BP 127 / 79; Pulse 92; Resp 17; Temp 98.5; Pulse Ox 96% on R/A; Weight 112.94 kg; ll1 Height 5 ft. 9 in. (175.26 cm); Pain 7/10; 16:00 BP 122 / 90; Pulse 72; Resp 16; Pulse Ox 93% on NC; zb 18:00 BP 139 / 85; Pulse 64; Resp 19; Pulse Ox 94% on R/A; zb 15:34 Body Mass Index 36.77 (112.94 kg, 175.26 cm) ll1 MDM: 15:45 Patient medically screened. [facility] 18:51 Data reviewed: vital signs, nurses notes. Counseling: I had a detailed discussion with froylan the patient and/or guardian regarding: the historical points, exam findings, and any diagnostic results supporting the discharge/admit diagnosis, lab results, radiology results, the need for outpatient follow up, to return to the emergency department if symptoms worsen or persist or if there are any questions or concerns that arise at home. ED course: Patient advised to follow upw ith GI for further evaluation. Patient otherwise given strict return precautions. Patient understood and agrees with the plan of care. . 10/17 15:45 Order name: Basic Metabolic Panel [facility] 10/17 15:45 Order name: CBC with Diff; Complete Time: 16:41 [facility] 10/17 15:45 Order name: Hepatic Function; Complete Time: 16:42 [facility] 10/17 15:45 Order name: Lipase; Complete Time: 16:42 [facility] 10/17 15:46 Order name: Basic Metabolic Panel; Complete Time: 16:42 [facility] 10/17 17:50 Order name: Urine Dipstick-Ancillary; Complete Time: 17:55 [facility] 10/17 15:45 Order name: IV Saline Lock; Complete Time: 16:08 [facility] 10/17 15:45 Order name: Labs collected and sent; Complete Time: 16:08 [facility] 10/17 15:45 Order name: CT Abd/Pelvis - IV Contrast Only; Complete Time: 17:13 [facility] 10/17 17:32 Order name: Urine Dipstick-Ancillary (obtain specimen); Complete Time: 17:45 [facility] Administered Medications: 16:09 Drug: NS 0.9% 1000 ml Route: IV; Rate: 1000 ml; Site: left antecubital; ca1 Disposition: 10/18 14:44 Co-signature as Attending Physician, Dylan Malone MD. ma2 Disposition: 10/17/20 18:53 Discharged to Home. Impression: Generalized abdominal pain. - Condition is Stable. - Discharge Instructions: Abdominal Pain, Adult. - Prescriptions for Zanaflex 4 mg Oral Tablet - take 1 tablet by ORAL route every 8 hours As needed; 20 tablet. Anusol- HC 25 mg Rectal Suppository - insert 1 suppository by RECTAL route every 12 hours As needed; 20 suppository. - Medication Reconciliation Form, Thank You Letter, Antibiotic Education, Prescription Opioid Use form. - Follow up: Cassy Benito MD; When: 2 - 3 days; Reason: Recheck today's complaints, Continuance of care, Re-evaluation by your physician. Signatures: Dispatcher [employer] EDMS Abdi Starkey PA PA [facility] Dylan Malone MD MD ma2 Jaimee Jurado RN RN ca1 Abdiel Archer RN RN ll1 Abbey Garcia RN RN zb Corrections: (The following items were deleted from the chart) 10/17 18:48 15:25 This is a 50 year old male with a history of pancreatitis that presents to the ED [facility] with complaints of bilateral flank pain, abdominal pain. patient also . [facility] 19:11 18:53 10/17/2020 18:53 Discharged to Home. Impression: Generalized abdominal pain. zb Condition is Stable. Forms are Medication Reconciliation Form, Thank You Letter, Antibiotic Education, Prescription Opioid Use. Follow up: Cassy Benito; When: 2 - 3 days; Reason: Recheck today's complaints, Continuance of care, Re-evaluation by your physician. [facility]
[2020-10-17 19:39] VITALS: TEMP 98.5
[2020-10-17 19:42] VITALS: BP 139/85; O2SAT 94
== END 2020-10-17 19:11 | disposition home or self-care (01) ==
LOC: ER 15:25
DX: R10.84 Generalized abdominal pain (principal); E66.9 Obesity, unspecified; Z68.36 Body mass index [BMI] 36.0-36.9, adult; K21.9 Gastro-esophageal reflux disease without esophagitis
CPT/HCPCS: 85025; 80048; 36415; 80076; 81003; 83690; 74177; Q9967; J7030; 99284

== ENCOUNTER 2020-11-05 22:05 | Emergency (ER) | payer OTHER ==
[2020-11-05] MEDS ORDERED: KETOROLAC 30 MG/ML INJ ONE (23:25)
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
[2020-11-06 01:42] VITALS: TEMP 98.7
[2020-11-06 01:44] VITALS: BP 124/88; O2SAT 95
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
== END 2020-11-06 00:41 | disposition home or self-care (01) ==
LOC: ER 22:05
DX: M54.2 Cervicalgia (principal); V49.40XA Driver injured in collision with unspecified motor vehicles in traffic accident, initial encounter
CPT/HCPCS: 72040; 96372; 99284

== ENCOUNTER 2020-12-20 16:25 | Emergency (ER) | payer OTHER, SELFPAY ==
--- NOTE | 2020-12-20 20:27 | ER ---
Nurse's Notes [facility] Name: Jsoe Rudd Age: 50 yrs Sex: Male : 1970 Arrival Date: 12/20/2020 Time: 16:29 Bed 12 Private MD: Raghavendra Fernandez Diagnosis: Acute upper respiratory infection, unspecified Presentation: 12/20 17:03 Chief complaint: Patient states: Cough, body aches x 2 days. Coronavirus screen: Client kg denies travel out of the [place] in the last 14 days. At this time, unable to obtain information related to travel outside the [place] Ebola Screen: Patient negative for fever greater than or equal to 101.5 degrees Fahrenheit, and additional compatible Ebola Virus Disease symptoms Patient denies exposure to infectious person. Patient denies travel to an Ebola-affected area in the 21 days before illness onset. Initial Sepsis Screen: Does the patient meet any 2 criteria? No. Patient's initial sepsis screen is negative. Does the patient have a suspected source of infection? No. Patient's initial sepsis screen is negative. Risk Assessment: Do you want to hurt yourself or someone else? Patient reports no desire to harm self or others. Onset of symptoms was December 18, 2020. 17:03 Method Of Arrival: Ambulatory kg 17:03 Acuity: TONY 3 kg Triage Assessment: 17:06 General: Appears in no apparent distress. Behavior is calm, cooperative, appropriate kg for age, quiet. Pain: Complains of pain in Generalized Pain does not radiate. Historical: - Allergies: 17:06 No Known Allergies; kg - Home Meds: 17:06 None [Active]; kg - PMHx: 17:06 acid reflux; Pancreatitis; kg - PSHx: 17:06 None; kg - Immunization history:: Adult Immunizations not up to date, Client reports receiving the 1st dose of the Covid vaccine, November 26, 2020 [employer]. - Social history:: Smoking status: Patient denies any tobacco usage or history of. Screenin:09 Abuse screen: Denies threats or abuse. Denies injuries from another. Nutritional kg screening: No deficits noted. Tuberculosis screening: No symptoms or risk factors identified. Fall Risk None identified. Assessment: 20:20 General: Appears in no apparent distress. comfortable, Behavior is calm, cooperative, em Denies fever. Pain: Denies pain. Neuro: Level of Consciousness is awake, alert, obeys commands, Oriented to person, place, time, situation. Cardiovascular: Capillary refill < 3 seconds Patient's skin is warm and dry. Respiratory: Airway is patent Respiratory effort is even, unlabored, Respiratory pattern is regular, symmetrical. GI:. Derm: Skin is intact, is healthy with good turgor, Skin is pink, warm \T\ dry. Musculoskeletal: Capillary refill < 3 seconds, Range of motion: intact in all extremities. Vital Signs: 17:03 BP 144 / 97; Pulse 85; Resp 20; Temp 98.6; Pulse Ox 97% on R/A; Weight 111.13 kg (R); kg Height 5 ft. 9 in. (175.26 cm); Pain 05/11; 17:03 Body Mass Index 36.18 (111.13 kg, 175.26 cm) kg ED Course: 16:29 Patient arrived in ED. am2 16:30 Raghavendra Fernandez MD is Private Physician. am2 17:06 Triage completed. kg 17:06 Arm band placed on right wrist. kg 17:09 Patient has correct armband on for positive identification. kg 17:59 Abdi Starkey PA is PHCP. jmm 17:59 Charles Ambrocio MD is Attending Physician. jmm 20:26 Raghavendra Fernandez MD is Referral Physician. [facility] 20:39 Roberto Michael, KELSEY is Primary Nurse. em 20:40 No provider procedures requiring assistance completed. Patient did not have IV access em during this emergency room visit. Administered Medications: No medications were administered Outcome: 20:27 Discharge ordered by . jmm 20:40 Discharged to home ambulatory. em 20:40 Condition: good 20:40 Discharge instructions given to patient, Instructed on discharge instructions, follow up and referral plans. medication usage, Demonstrated understanding of instructions, follow-up care, medications, Prescriptions given X 1. 20:41 Patient left the ED. em Signatures: Abdi Starkey PA PA Roberto Mata, RN RN em Scarlet Luevano am2 Dulce Akhtar RN RN kg
--- NOTE | 2020-12-20 20:27 | EDPHYS ---
Physician Documentation [facility] Name: Jose Rudd Age: 50 yrs Sex: Male : 1970 Arrival Date: 12/20/2020 Time: 16:29 Bed 12 Private MD: Raghavendra Fernandez ED Physician Charles Ambrocio HPI: 12/20 20:25 This 50 yrs old Male presents to ER via Ambulatory with complaints of r/o jmm covid. 20:25 Onset: The symptoms/episode began/occurred gradually, 3 day(s) ago. Modifying factors: jmm The symptoms are alleviated by nothing. the symptoms are aggravated by nothing. Associated signs and symptoms: Pertinent positives: congestion, cough. It is unknown whether or not the patient has had similar symptoms in the past. Son tested positive for covid. Historical: - Allergies: 17:06 No Known Allergies; kg - Home Meds: 17:06 None [Active]; kg - PMHx: 17:06 acid reflux; Pancreatitis; kg - PSHx: 17:06 None; kg - Immunization history:: Adult Immunizations not up to date, Client reports receiving the 1st dose of the Covid vaccine, November 26, 2020 [employer]. - Social history:: Smoking status: Patient denies any tobacco usage or history of. ROS: 20:25 Constitutional: Positive for chills. jmm 20:25 ENT: Positive for sinus congestion. 20:25 Respiratory: Positive for cough. 20:25 All other systems are negative. Exam: 20:25 Constitutional: This is a well developed, well nourished patient who is awake, alert, jmm and in no acute distress. Head/Face: atraumatic. Eyes: EOMI, no conjunctival erythema appreciated ENT: Moist Mucus Membranes Neck: Trachea midline, Supple Chest/axilla: Normal chest wall appearance and motion. Cardiovascular: Regular rate and rhythm. No edema appreciated Respiratory: Normal respirations, no respiratory distress appreciated Abdomen/GI: Non distended, soft Back: Normal ROM Skin: General appearance color normal MS/ Extremity: Moves all extremities, no obvious deformities appreciated, no edema noted to the lower extremities Neuro: Awake and alert, normal gait Psych: Behavior is normal, Mood is normal, Patient is cooperative and pleasant Vital Signs: 17:03 BP 144 / 97; Pulse 85; Resp 20; Temp 98.6; Pulse Ox 97% on R/A; Weight 111.13 kg (R); kg Height 5 ft. 9 in. (175.26 cm); Pain /10; 17:03 Body Mass Index 36.18 (111.13 kg, 175.26 cm) kg MDM: 19:30 Patient medically screened. [facility] 20:26 Data reviewed: vital signs, nurses notes. Counseling: I had a detailed discussion with [facility] the patient and/or guardian regarding: the historical points, exam findings, and any diagnostic results supporting the discharge/admit diagnosis, the need for outpatient follow up, to return to the emergency department if symptoms worsen or persist or if there are any questions or concerns that arise at home. Administered Medications: No medications were administered Disposition: 12/21 09:24 Co-signature as Attending Physician, Charles Ambrocio MD I agree with the assessment and [facility] plan of care. Disposition Summary: 12/20/20 20:27 Discharge Ordered Location: Home [facility] Condition: Stable [facility] Diagnosis - Acute upper respiratory infection, unspecified [facility] Followup: [facility] - With: Raghavendra Fernandez MD - When: 2 - 3 days - Reason: Recheck today's complaints, Continuance of care, Re-evaluation by your physician Discharge Instructions: - Discharge Summary Sheet [facility] - Upper Respiratory Infection, Adult jm - COVID-19 [facility] Forms: - Medication Reconciliation Form [facility] - Thank You Letter [facility] - Antibiotic Education [facility] - Prescription Opioid Use [facility] Prescriptions: - ivermectin 3 mg Oral tablet - take 6 tablet by ORAL route as directed 6 tabs now and another 6 tabs on day 3; [facility] 12 tablet; Refills: 0, Product Selection Permitted Signatures: Charles Ambrocio MD MD cha Mickail, Joel, PA PA Dulce Johns, RN RN kg
[2020-12-20 20:46] VITALS: BP 144/97; TEMP 98.6; O2SAT 97
== END 2020-12-20 20:41 | disposition home or self-care (01) ==
LOC: ER 16:25
DX: U07.1 COVID-19 (principal); J06.9 Acute upper respiratory infection, unspecified
CPT/HCPCS: 99282; U0003

== ENCOUNTER 2022-09-13 11:53 | Emergency (ER) | payer SELFPAY ==
--- OUTSIDE RECORDS SUMMARY | 2022-09-13 12:07 | XMS REPORT | Continuity of Care Document ---
:1970 Author Organization [facility] t Address [address] [place] [address] [place] [id number] Care Team Providers Name Role Phone Pcp, Patient Does Not Have A Primary Care Physician [phone] BRYCE AVENDANO Attending Clinician Unavailable Bryce Wallace Attending Clinician Problems Condition Condition Condition Status Onset Resolution Last Treating Co mments Source Name Details Category Date Date Treatment Clinician Date No known No known Disease Unive rs active active ity of problems problems [facility] Allergies, Adverse Reactions, Alerts Allergy Allergy Status Severity Reaction(s) Onset Inactive Treating Comm ents Source Name Type Date Date Clinician NO KNOWN Drug Active [facility] ALLERGIE Class ity of [facility] [place] [facility] [place] Social History Social Habit Start Date Stop Date Quantity Comments Source Exposure to 2022-05-14 2022-05-24 Not sure [facility] SARS-CoV-2 (event) 00:00:00 21:57:00 Medica l Branch Sex Assigned At [birth year] [facility] 00:00:00 00:00:00 Medical Branch Smoking Status Start Date Stop Date Source Tobacco smoking consumption [facility] unknown Branch Medications Ordered Filled Start Stop Current Ordering Indication Dosage Frequency Signature Comments Components Source Medication Medication Date Date Medication? Clinician (SIG) Name Name clindamycin 2022- No [id number] 300mg Take 1 Univers 300 mg 05-25 capsule by ity of capsule 00:00: 05:59 mouth 4 [place] 00 :00 (four) Medical times Branch daily for 7 days. tamsulosin Yes .4mg Take 1 Cap U nivers (FLOMAX) 7-21 by mouth ity of 0.4 mg 24 00:00: at [place] hr capsule 00 bedtime. Medic al Branch hydrocodone Yes 1{tbl} Take 1-2 Univers -acetaminop 7-21 Tabs by ity o f hen (NORCO 00:00: mouth [place] 5) 5-325 mg 00 every 6 Medic al tablet (six) Branch hours as needed for Pain. Vital Signs Vital Name Observation Time Observation Value Comments Source Systolic blood 2022-05-25 06:53:49 151 mm[Hg] Univer sity of pressure [facility] Diastolic blood 2022-05-25 06:53:49 87 mm[Hg] [facility] 2022-05-25 06:53:49 94 /min [facility] Respiratory rate 2022-05-25 06:53:49 20 /min [facility] Oxygen saturation in 2022-05-25 06:53:49 95 /min [facility] Arterial blood by [facility] Pulse oximetry [place] Body temperature 2022-05-25 03:59:00 36.78 Gretta [facility] Body height 2022-05-25 03:59:00 172.7 cm [facility] Body weight 2022-05-25 03:59:00 121.473 kg [facility] BMI 2022-05-25 03:59:00 40.72 kg/m2 [facility] Procedures Procedure Date / Time Performed Performing Clinician [facility] e NOTICE OF PRIVACY 2022-05-25 03:46:35 Doctor Unassigned, No [facility] Name [facility] CONSENT/REFUSAL FOR 2022-05-25 03:46:13 [facility] Branch TREATMENT Encounters Start End Encounter Admission Attending Care Care Encounter Source Date/Time Date/Time Type Type Clinicians Facility Department ID 2022-05-24 2022-05-25 Emergency X IBCURRY [facility] [[email or web address] ERT [id number] [facility] 22:01:00 00:55:00 BRYCE campos [facility] 2022-05-24 2022-05-25 Emergency Santoshgarethamandaidalmis [facility] [[email or web address]] [id number] [facility] 22:01:00 00:55:00 [facility] [id number] andres [facility] [id number] [facility] [id number] [place] [id number] Branch Results This patient has no known results.
[2022-09-13 13:28] LABS: Absolute Lymphocytes (CBC) 3.2 K/uL (0.7-4.9); Hematocrit 51.2 % (39.6-49.0); Lymphocytes % 33.5 % (15.3-44.8); MCV 93.1 fL (80-100); MPV 8.5 fL (7.6-11.3)
--- NOTE | 2022-09-13 13:28 | RAD REPORT ---
EXAM DESCRIPTION: CT - Stone Protocol - 09/13/2022 1:16 pm CLINICAL HISTORY: Flank pain. left flank pain COMPARISON: Abdomen Pelvis W Contrast dated 10/17/2020 TECHNIQUE: Axial images were obtained without oral or IV contrast. Lack of contrast limits solid org an and vascular assessment. The [id number] spans the entirety of the system partially obscuring uppermost abdomen and lung bases. Coronal reformatted images were obtained and reviewed. All CT scans are performed using dose optimization technique as appropriate and may include automated exposure control or mA/KV adjustment according to patient size. FINDINGS: The lower lung mcallister are clear. Significant fatty liver. Spleen appears normal. The pancreas and adrenal glands are normal. No pathol ogic lymphadenopathy in the abdomen or pelvis. No urinary tract stones or obstructive uropathy. No bowel obstruction, free air, free fluid or abscess. Normal appendix noted.Sigmoid diverticulosis c josr without diverticulitis. No significant bony abnormality. IMPRESSION: No urinary tract stones or obstructive uropathy. Advanced fatty liver. Sigmoid diverticulosis coli without diverticulitis.
[2022-09-13 13:40] LABS: Albumin 3.4 g/dL (3.4-5.0); Bilirubin Total 0.3 mg/dL (0.2-1.0); Potassium 4.2 mEq/L (3.5-5.1); Protein, Total 7.8 g/dL (6.4-8.2)
[2022-09-13] MEDS ORDERED: MORPHINE 4 MG/ML SYR ONE (14:26)
[2022-09-13] MEDS ORDERED: ONDANSETRON 4 MG/2 ML VIAL ONE ×2 (14:26→17:27)
[2022-09-13] MEDS ORDERED: NA CHLORIDE 0.9% 1,000 ML ONE (14:26)
[2022-09-13] MEDS ORDERED: Ringers Lactate 1,000 ML IV ONE (16:06)
[2022-09-13] MEDS ORDERED: HYDROMORPHONE HCL 1 MG/ML INJ ONE (16:06)
[2022-09-13 16:40] LABS: Specific Gravity > 1.030 (1.005-1.030); Urine Bacteria None Seen /HPF (<20); Urine Bilirubin NEGATIVE (Negative); Urine Blood 1+ (Negative); Urine Clarity Clear (Clear); Urine Color Light-Yellow (Yellow); Urine Glucose 4+ (Over) (Negative); Urine Mucus Slight /HPF (None Seen); Urine Protein NEGATIVE (Negative); Urine Urobilinogen Normal (Normal); Urine pH 5.5 (5.0-7.0)
[2022-09-13] MEDS ORDERED: KETOROLAC 30 MG/ML INJ ONE (17:27)
--- NOTE | 2022-09-13 18:34 | ER ---
Nurse's Notes [facility] Name: Jose Rudd Age: 52 yrs Sex: Male : 1970 Arrival Date: 09/13/2022 Time: 11:53 Bed 10 Private MD: Diagnosis: Pancreatitis Presentation: 09/13 12:19 Chief complaint: Patient states: Left lower back/flank pain since Tuesday. Pt believes nj1 it is his kidneys acting up, has kidney stones in the past (a few years ago) Frequent urination. Coronavirus screen: Vaccine status: Patient reports receiving the 2nd dose of the covid vaccine. Ebola Screen: Patient denies travel to an Ebola-affected area in the 21 days before illness onset. Initial Sepsis Screen: Does the patient meet any 2 criteria? HR > 90 bpm. No. Patient's initial sepsis screen is negative. Does the patient have a suspected source of infection? No. Patient's initial sepsis screen is negative. Risk Assessment: Do you want to hurt yourself or someone else? Patient reports no desire to harm self or others. Onset of symptoms was September 11, 2022. 12:19 Method Of Arrival: Ambulatory [facility] 12:19 Acuity: TONY 3 nj1 Historical: - Allergies: 12:23 No Known Allergies; nj1 - Home Meds: 12:23 None [Active]; nj1 - PMHx: 12:23 acid reflux; Pancreatitis; kidney stones; nj1 - PSHx: 12:23 None; nj1 - Immunization history:: Client reports receiving the 2nd dose of the Covid vaccine. - Social history:: Smoking status: Patient/guardian denies using tobacco, the patient reports quitting approximately 1 years ago. Screenin:27 [facility] ED Fall Risk Assessment (Adult) History of falling in the last 3 months, iw including since admission. Abuse screen: Denies threats or abuse. Denies injuries from another. Nutritional screening: No deficits noted. Tuberculosis screening: No symptoms or risk factors identified. Assessment: 14:27 Reassessment: Patient and/or family updated on plan of care and expected duration. Pain iw level reassessed. Patient is alert, oriented x 3, equal unlabored respirations, skin warm/dry/pink. Patient states symptoms have not improved. 18:34 Pain: Complains of pain in back. ko1 Vital Signs: 12:19 BP 122 / 88; Pulse 91; Resp 18; Temp 98.2(O); Pulse Ox 96% on R/A; Weight 115.67 kg; nj1 Height 5 ft. 8 in. ; Pain 5/10; 16:00 BP 116 / 86; Pulse 62; Resp 16; Pulse Ox 98% on R/A; Pain 9/10; iw 18:00 BP 138 / 72; Pulse 72; Resp 16; Pulse Ox 99% on R/A; ko1 12:19 Body Mass Index 38.77 (115.67 kg, 172.72 cm) nj1 12:19 Pain Scale: Adult nj1 16:00 Pain Scale: Adult iw ED Course: 11:54 Patient arrived in ED. rg4 11:57 Abdi Starkey PA is PHCP. m 11:57 Pranav Mosley DO is Attending Physician. jmm 12:23 Triage completed. nj1 12:24 Arm band placed on right wrist. nj1 13:10 Inserted saline lock: 20 gauge in right antecubital area, using aseptic technique. nj1 Blood collected. 13:13 CBC with Diff Sent. nj1 13:13 CMP Sent. nj1 13:13 Lipase Sent. nj1 13:18 CT Stone Protocol In Process Unspecified. EDMS 13:54 Radha Cherry, RN is Primary Nurse. iw 14:27 Patient has correct armband on for positive identification. iw 16:24 Urinalysis w/ reflexes Sent. ko1 18:00 No provider procedures requiring assistance completed. IV discontinued, intact, ko1 bleeding controlled, No redness/swelling at site. Pressure dressing applied. 18:31 Lam Dempsey MD is Referral Physician. [facility] Administered Medications: 14:27 Drug: NS 0.9% IV 1000 ml Route: IV; Rate: 1 bolus; Site: right antecubital; iw 16:44 Follow up: IV Status: Completed infusion; IV Intake: 1000ml ko1 14:27 Drug: Ondansetron IVP 4 mg Route: IVP; Site: right antecubital; iw 16:45 Follow up: Response: No adverse reaction ko1 14:27 Drug: morphine IVP or IV 4 mg Route: IVP; Infused Over: 4 mins; Site: right antecubital;iw 16:45 Follow up: Response: No adverse reaction ko1 16:07 Drug: HYDROmorphone IVP 1 mg Route: IVP; Site: right antecubital; iw 16:44 Follow up: Response: No adverse reaction; Pain is decreased ko1 16:24 Drug: Lactated Ringers Solution IV 1000 ml Route: IV; Rate: 1000 bolus; Site: right ko1 antecubital; 18:15 Follow up: IV Status: Completed infusion; IV Intake: 1000ml ko1 17:21 Drug: Ondansetron IVP 4 mg Route: IVP; Site: right antecubital; ko1 18:15 Follow up: Response: No adverse reaction; Nausea is decreased ko1 17:27 Drug: Ketorolac IVP 30 mg Route: IVP; Site: right antecubital; ko1 18:15 Follow up: Response: No adverse reaction; Pain is decreased ko1 Medication: 18:00 VIS not applicable for this client. ko1 Intake: 16:44 IV: 1000ml; Total: 1000ml. ko1 18:15 IV: 1000ml; Total: 2000ml. ko1 Outcome: 18:00 Discharged to home ambulatory. ko1 18:00 Condition: improved 18:00 Discharge instructions given to patient, Instructed on discharge instructions, follow up and referral plans. medication usage, Demonstrated understanding of instructions, follow-up care, medications, Prescriptions given X 3. 18:33 Discharge ordered by . froylan 18:42 Patient left the ED. ko1 Signatures: Dispatcher [employer] EDMS Abdi Starkey PA PA jmm Williams, Irene, RN RN iw Garcia, Rubi rg4 Rita Johnson RN RN ko1 Kassandra Magallanes RN RN nj1 Corrections: (The following items were deleted from the chart) 12:24 12:23 Social history: Smoking status: Patient denies any tobacco usage or history of. nj1 nj1
--- NOTE | 2022-09-13 18:34 | EDPHYS ---
Physician Documentation [facility] Name: Jose Rudd Age: 52 yrs Sex: Male : 1970 Arrival Date: 09/13/2022 Time: 11:53 Bed 10 Private MD: ED Physician Pranav Mosley HPI: 09/13 12:54 This 52 yrs old Male presents to ER via Ambulatory with complaints of Low Back Pain. [facility] 12:54 Is a 52-year-old male with history of pancreatitis, kidney stones the presents emerged [facility] part with complaints of left-sided back pain beginning this past Tuesday. Patient is concerned he may have a kidney stone.. Historical: - Allergies: 12:23 No Known Allergies; nj1 - Home Meds: 12:23 None [Active]; nj1 - PMHx: 12:23 acid reflux; Pancreatitis; kidney stones; nj1 - PSHx: 12:23 None; nj1 - Immunization history:: Client reports receiving the 2nd dose of the Covid vaccine. - Social history:: Smoking status: Patient/guardian denies using tobacco, the patient reports quitting approximately 1 years ago. ROS: 12:54 Constitutional: Negative for fever, chills, and weight loss, Cardiovascular: Negative [facility] for chest pain, palpitations, and edema, Respiratory: Negative for shortness of breath, cough, wheezing, and pleuritic chest pain. 12:54 Back: Positive for flank pain, on the left. 12:54 All other systems are negative. Exam: 12:54 Constitutional: This is a well developed, well nourished patient who is awake, alert, jm and in no acute distress. Head/Face: atraumatic. Eyes: EOMI, no conjunctival erythema appreciated ENT: Moist Mucus Membranes Neck: Trachea midline, Supple Chest/axilla: Normal chest wall appearance and motion. Cardiovascular: Regular rate and rhythm. No edema appreciated Respiratory: Normal respirations, no respiratory distress appreciated Abdomen/GI: Non distended Back: Normal ROM Skin: General appearance color normal MS/ Extremity: Moves all extremities, no obvious deformities appreciated, no edema noted to the lower extremities Neuro: Awake and alert Psych: Behavior is normal, Mood is normal, Patient is cooperative and pleasant Vital Signs: 12:19 BP 122 / 88; Pulse 91; Resp 18; Temp 98.2(O); Pulse Ox 96% on R/A; Weight 115.67 kg; nj1 Height 5 ft. 8 in. ; Pain 5/10; 16:00 BP 116 / 86; Pulse 62; Resp 16; Pulse Ox 98% on R/A; Pain 9/10; iw 18:00 BP 138 / 72; Pulse 72; Resp 16; Pulse Ox 99% on R/A; ko1 12:19 Body Mass Index 38.77 (115.67 kg, 172.72 cm) nj1 12:19 Pain Scale: Adult nj1 16:00 Pain Scale: Adult iw MDM: 12:54 Patient medically screened. [facility] 18:30 Differential diagnosis: Pyelonephritis, pancreatitis, peptic ulcer disease, gastritis, jmm strain. Data reviewed: vital signs, nurses notes, lab test result(s), radiologic studies, CT scan. Consideration of Admission/Observation Escalation of care including admission/observation considered. I considered the following discharge prescriptions or medication management in the emergency department Medications were administered in the Emergency Department. See MAR. Counseling: I had a detailed discussion with the patient and/or guardian regarding: the historical points, exam findings, and any diagnostic results supporting the discharge/admit diagnosis, lab results, radiology results, the need for outpatient follow up, to return to the emergency department if symptoms worsen or persist or if there are any questions or concerns that arise at home. 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 [facility] 09/13 12:56 Order name: CBC with Diff; Complete Time: 13:59 [facility] 09/13 12:56 Order name: CMP; Complete Time: 13:59 [facility] 09/13 12:56 Order name: Lipase; Complete Time: 13:59 [facility] 09/13 12:56 Order name: Urinalysis w/ reflexes; Complete Time: 16:43 [facility] 09/13 12:56 Order name: CT Stone Protocol; Complete Time: 13:35 [facility] 09/13 12:56 Order name: IV Saline Lock; Complete Time: 13:13 [facility] 09/13 12:56 Order name: Labs collected and sent; Complete Time: 13:13 [facility] Administered Medications: 14:27 Drug: NS 0.9% IV 1000 ml Route: IV; Rate: 1 bolus; Site: right antecubital; 16:44 Follow up: IV Status: Completed infusion; IV Intake: 1000ml ko1 14:27 Drug: Ondansetron IVP 4 mg Route: IVP; Site: right antecubital; iw 16:45 Follow up: Response: No adverse reaction ko1 14:27 Drug: morphine IVP or IV 4 mg Route: IVP; Infused Over: 4 mins; Site: right antecubital;iw 16:45 Follow up: Response: No adverse reaction ko1 16:07 Drug: HYDROmorphone IVP 1 mg Route: IVP; Site: right antecubital; iw 16:44 Follow up: Response: No adverse reaction; Pain is decreased ko1 16:24 Drug: Lactated Ringers Solution IV 1000 ml Route: IV; Rate: 1000 bolus; Site: right ko1 antecubital; 18:15 Follow up: IV Status: Completed infusion; IV Intake: 1000ml ko1 17:21 Drug: Ondansetron IVP 4 mg Route: IVP; Site: right antecubital; ko1 18:15 Follow up: Response: No adverse reaction; Nausea is decreased ko1 17:27 Drug: Ketorolac IVP 30 mg Route: IVP; Site: right antecubital; ko1 18:15 Follow up: Response: No adverse reaction; Pain is decreased ko1 Disposition: 20:21 Co-signature as Attending Physician, Pranav GILLESPIE was immediately available on-site ms3 in the Emergency Department for consultation in the care of the patient. Disposition Summary: 09/13/22 18:33 Discharge Ordered Location: Home [facility] Condition: Stable [facility] Diagnosis - Pancreatitis [facility] Followup: [facility] - With: Lam Dempsey MD - When: 2 - 3 days - Reason: Recheck today's complaints, Continuance of care, Re-evaluation by your physician Discharge Instructions: - Discharge Summary Sheet [facility] - Clear Liquid Diet, Adult [facility] - Acute Pancreatitis [facility] Forms: - Medication Reconciliation Form [facility] - Thank You Letter [facility] - Antibiotic Education [facility] - Prescription Opioid Use [facility] Prescriptions: - ondansetron 4 mg Oral Tablet,disintegrating - take 1 tablet by ORAL route every 4-6 hours As needed; 30 tablet; Refills: 0, [facility] Product Selection Permitted - Pepcid 20 mg Oral Tablet - take 1 tablet by ORAL route every 12 hours for 10 days; 20 tablet; Refills: 0, jmm Product Selection Permitted - Ultracet 37.5-325 mg Oral Tablet - take 1 tablet by ORAL route every 6 hours - for up to 5 days; do not exceed 8 jmm tablets per day.; 30 tablet; Refills: 0, Product Selection Permitted Signatures: Dispatcher [employer] Abdi Osorio PA PA jmm Williams, Irene, RN RN iw Pranav Mosley DO DO ms3 Rita Johnson RN RN ko1 Kassandra Magallanes RN RN nj1 Corrections: (The following items were deleted from the chart) 12:24 12:23 Social history: Smoking status: Patient denies any tobacco usage or history of. nj1 nj1
[2022-09-13 19:01] VITALS: TEMP 98.2
[2022-09-13 19:09] VITALS: BP 138/72; O2SAT 99
== END 2022-09-13 18:42 | disposition home or self-care (01) ==
LOC: ER 11:53
DX: K85.90 Acute pancreatitis without necrosis or infection, unspecified (principal)
CPT/HCPCS: 36415; 74176; 76377; 80053; 81001; 83690; 85025; 96361; 96374; 96375; 99284; J1170; J2405; J7030; J7120

== ENCOUNTER 2023-02-22 12:35 | Emergency (ER) | payer BC, SELFPAY ==
--- OUTSIDE RECORDS SUMMARY | 2023-02-22 12:39 | XMS REPORT | Continuity of Care Document ---
:1970 Author Organization [facility] t Address [address] [place] [address] [place] [id number] Care Team Providers Name Role Phone Pcp, Patient Does Not Have A Primary Care Physician +[id number] BRYCE AVENDANO Attending Clinician Unavailable Bryce Wallace Attending Clinician Problems Condition Condition Condition Status Onset Resolution Last Treating Co mments Source Name Details Category Date Date Treatment Clinician Date No known No known Disease Unive rs active active ity of problems problems [facility] Allergies, Adverse Reactions, Alerts Allergy Allergy Status Severity Reaction(s) Onset Inactive Treating Comm ents Source Name Type Date Date Clinician NO KNOWN Drug Active [facility] ALLERGIE Class [facility] [place] [facility] Social History Social Habit Start Date Stop Date Quantity Comments Source Exposure to 2022-05-14 2022-05-24 Not sure [facility] SARS-CoV-2 (event) 00:00:00 21:57:00 Medica l Branch Sex Assigned At [birth year] [facility] 00:00:00 00:00:00 Medical Branch Smoking Status Start Date Stop Date Source Tobacco smoking consumption [facility] Medical unknown Branch Medications Ordered Filled Start Stop Current Ordering Indication Dosage Frequency Signature Comments Components Source Medication Medication Date Date Medication? Clinician (SIG) Name Name clindamycin 2022- No [id number] 300mg Take 1 [facility] 300 mg 05-25 capsule by ity of capsule 00:00: 05:59 mouth 4 [place] 00 :00 (four) Medical times Branch daily for 7 days. tamsulosin Yes .4mg Take 1 Cap U nivers (FLOMAX) 7-21 by mouth ity of 0.4 mg 24 00:00: at [place] hr capsule 00 bedtime. Medic al Branch hydrocodone Yes 1{tbl} Take 1-2 Univers -acetaminop 7-21 Tabs by ity o f hen (NORCO 00:00: mouth [place] 5) 5-325 mg 00 every 6 Medic al tablet (six) Branch hours as needed for Pain. Vital Signs Vital Name Observation Time Observation Value Comments Source Systolic blood 2022-05-25 06:53:49 151 mm[Hg] Univer sity of pressure [facility] Diastolic blood 2022-05-25 06:53:49 87 mm[Hg] [facility] rate 2022-05-25 06:53:49 94 /min [facility] Respiratory rate 2022-05-25 06:53:49 20 /min [facility] Oxygen saturation in 2022-05-25 06:53:49 95 /min [facility] Arterial blood by [facility] Pulse oximetry [place] Body temperature 2022-05-25 03:59:00 36.78 Gretta [facility] Body height 2022-05-25 03:59:00 172.7 cm [facility] Body weight 2022-05-25 03:59:00 121.473 kg [facility] BMI 2022-05-25 03:59:00 40.72 kg/m2 [facility] Procedures Procedure Date / Time Performed Performing Clinician [facility] e NOTICE OF PRIVACY 2022-05-25 03:46:35 Doctor Unassigned, No [facility] PRACTICES Name [facility] CONSENT/REFUSAL FOR 2022-05-25 03:46:13 [facility]assigned, No [facility] AND Name Medical Branch TREATMENT Encounters Start End Encounter Admission Attending Care Care Encounter Source Date/Time Date/Time Type Type Clinicians Facility Department ID 2022-05-24 2022-05-25 Emergency X IBCURRY [facility] ERT [id number] [facility] 22:01:00 00:55:00 BRYCE campos [facility] 2022-05-24 2022-05-25 Emergency Santoshgarethamandaidalmis [facility] [id number] [facility] 22:01:00 00:55:00 [facility] [id number] andres [facility] [id number] [facility] [id number] [place] [id number] Branch Results This patient has no known results.
--- NOTE | 2023-02-22 15:44 | ER ---
Nurse's Notes [facility] Name: Jose Rudd Age: 52 yrs Sex: Male : 1970 Arrival Date: 02/22/2023 Time: 12:35 Bed 9 Private MD: Diagnosis: Right heel contusion Presentation: 02/22 13:06 Chief complaint: Patient states: right heel pain X2 weeks. PT states that he hit his cm10 truck and he is still having pain. Coronavirus screen: Vaccine status: Patient reports receiving the 2nd dose of the covid vaccine. Client denies travel out of the [place] in the last 14 days. Ebola Screen: Patient denies travel to an Ebola-affected area in the 21 days before illness onset. No symptoms or risks identified at this time. Initial Sepsis Screen: Does the patient meet any 2 criteria? No. Patient's initial sepsis screen is negative. Does the patient have a suspected source of infection? No. Patient's initial sepsis screen is negative. Risk Assessment: Do you want to hurt yourself or someone else? Patient reports no desire to harm self or others. Onset of symptoms was February 22, 2023. 13:06 Method Of Arrival: Ambulatory cm10 13:06 Acuity: TONY 4 cm10 Historical: - Allergies: 13:07 No Known Allergies; cm10 - Home Meds: 13:07 None [Active]; cm10 - PMHx: 13:07 acid reflux; Kidney stones; Pancreatitis; cm10 - PSHx: 13:07 None; cm10 - Immunization history:: Adult Immunizations unknown. - Social history:: Smoking status: Patient denies any tobacco usage or history of. Screenin:05 [facility] ED Fall Risk Assessment (Adult) Score/Fall Risk Level 0 - 2 = Low Risk. Abuse eh3 screen: Denies threats or abuse. Denies injuries from another. Nutritional screening: No deficits noted. Tuberculosis screening: No symptoms or risk factors identified. Assessment: 14:05 General: Appears in no apparent distress. uncomfortable, Behavior is calm, cooperative, eh3 appropriate for age. Pain: Complains of pain in heel of right foot. Neuro: Level of Consciousness is awake, alert, obeys commands, Oriented to person, place, time, situation. Cardiovascular: Capillary refill < 3 seconds Patient's skin is warm and dry. Respiratory: Airway is patent Respiratory effort is even, unlabored, Respiratory pattern is regular, symmetrical. GI: Abdomen is round non-distended. Derm: Skin is pink, warm \T\ dry. Musculoskeletal: Circulation, motion, and sensation intact. 15:00 Reassessment: Patient appears in no apparent distress at this time. Patient and/or eh3 family updated on plan of care and expected duration. Pain level reassessed. Patient is alert/active/playful, equal unlabored respirations, skin warm/dry/pink. Vital Signs: 13:06 BP 136 / 93; Pulse 87; Resp 18 S; Temp 97.7; Pulse Ox 98% on R/A; Weight 108.86 kg (R); cm10 Height 5 ft. 9 in. (R); Pain 4/10; 13:06 Body Mass Index 35.44 (108.86 kg, 175.26 cm) cm10 13:06 Pain Scale: Adult cm10 ED Course: 12:40 Patient arrived in ED. 12:58 [facility] FNP [facility] 12:58 Charles Ambrocio MD is Attending Physician. [facility] 13:07 Triage completed. cm10 13:08 Arm band placed on Patient placed in waiting room. cm10 14:00 XRAY Heel Os Calcis (calcaneus) In Process Unspecified. EDMS 14:05 Patient has correct armband on for positive identification. Bed in low position. Call eh3 light in reach. Side rails up X2. Provided Education on: Use of call villalobos. 14:18 Magdalena Lucas, RN is Primary Nurse. 3 16:06 No provider procedures requiring assistance completed. Patient did not have IV access eh3 during this emergency room visit. Administered Medications: No medications were administered Medication: 16:06 VIS not applicable for this client. eh3 Outcome: 15:44 Dis[address] ordered by . [facility] 16:06 Discharged to home ambulatory, 3 16:06 Condition: stable 16:06 Discharge instructions given to patient, Instructed on discharge instructions, follow up and referral plans. Demonstrated understanding of instructions, follow-up care, 16:07 Patient left the ED. 3 Signatures: Dispatcher [employer] [facility] Magdalena Lucas RN RN [facility] Lynn Carmona FNP PHARMACY ORDER ENTRY TECHNICIAN [facility] Holly Martínez Clarissa, RN RN cm10
--- NOTE | 2023-02-22 15:44 | EDPHYS ---
Physician Documentation [facility] Name: Jose Rudd Age: 52 yrs Sex: Male : 1970 Arrival Date: 02/22/2023 Time: 12:35 Bed 9 Private MD: ED Physician Charles Ambrocio HPI: 02/22 13:07 This 52 yrs old Male presents to ER via Ambulatory with complaints of Heel injury. jh7 13:07 Onset: The symptoms/episode began/occurred 2 week(s) ago. Associated signs and [facility] symptoms: The patient has no apparent associated signs or symptoms. 52-year-old male reports that he accidentally kicked his truck 2 weeks ago and has been experiencing right heel pain since then. Denies pain with range of motion, but reports pain with weightbearing.. Historical: - Allergies: 13:07 No Known Allergies; cm10 - Home Meds: 13:07 None [Active]; cm10 - PMHx: 13:07 acid reflux; Kidney stones; Pancreatitis; cm10 - PSHx: 13:07 None; cm10 - Immunization history:: Adult Immunizations unknown. - Social history:: Smoking status: Patient denies any tobacco usage or history of. ROS: 13:07 Constitutional: Negative for fever, chills, and weight loss, Eyes: Negative for injury, jh7 pain, redness, and discharge, Neck: Negative for injury, pain, and swelling, Cardiovascular: Negative for chest pain, palpitations, and edema, Respiratory: Negative for shortness of breath, cough, wheezing, and pleuritic chest pain, Back: Negative for injury and pain, Skin: Negative for injury, rash, and discoloration, Neuro: Negative for headache, weakness, numbness, tingling, and seizure, 13:07 MS/extremity: Positive for pain, of the heel of right foot, 13:07 All other systems are negative, Exam: 13:07 Constitutional: This is a well developed, well nourished patient who is awake, alert, jh7 and in no acute distress. Cardiovascular: Regular rate and rhythm with a normal S1 and S2. No gallops, murmurs, or rubs. Normal PMI, no JVD. No pulse deficits. Respiratory: Lungs have equal breath sounds bilaterally, clear to auscultation and percussion. No rales, rhonchi or wheezes noted. No increased work of breathing, no retractions or nasal flaring. Abdomen/GI: Soft, non-tender, with normal bowel sounds. No distension or tympany. No guarding or rebound. No evidence of tenderness throughout. Skin: Warm, dry with normal turgor. Normal color with no rashes, no lesions, and no evidence of cellulitis. Neuro: Awake and alert, GCS 15, oriented to person, place, time, and situation. Motor strength 5/5 in all extremities. Sensory grossly intact. Antalgic gait. 13:07 Musculoskeletal/extremity: Extremities: noted in the heel of right foot: pain, ROM: full active range of motion, in the right foot, Circulation is intact in all extremities. Perfusion: the extremity is normally perfused throughout, pink, warm, with brisk capillary refill, Sensation intact. Vital Signs: 13:06 BP 136 / 93; Pulse 87; Resp 18 S; Temp 97.7; Pulse Ox 98% on R/A; Weight 108.86 kg (R); cm10 Height 5 ft. 9 in. (R); Pain 4/10; 13:06 Body Mass Index 35.44 (108.86 kg, 175.26 cm) cm10 13:06 Pain Scale: Adult cm10 MDM: 12:58 Patient medically screened. [facility] 15:30 Differential diagnosis: Heel fracture, foot sprain, heel contusion. Data reviewed: [facility] vital signs, nurses notes, radiologic studies, plain films. 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 02/22 13:07 Order name: XRAY Heel Os Calcis (calcaneus); Complete Time: 16:35 [facility] Administered Medications: No medications were administered Disposition Summary: 02/22/23 15:44 Discharge Ordered Notes: Location: Home [facility] Problem: new [facility] Symptoms: are unchanged [facility] Condition: Stable [facility] Diagnosis - Right heel contusion [facility] Followup: [facility] - With: Private Physician - When: 2 - 3 days - Reason: Recheck today's complaints Discharge Instructions: - Discharge Summary Sheet jh7 - Contusion jh7 - Foot Contusion jh7 Forms: - Medication Reconciliation Form 7 - Thank You Letter 7 - Patient Portal Instructions 7 - Leadership Thank You Letter [facility] Signatures: Dispatcher [employer] Lynn Deutsch FNP FNP 7 Ernestina Smith RN RN cm10
--- NOTE | 2023-02-22 16:29 | RAD REPORT ---
EXAM DESCRIPTION: RAD - Os Calcis (Calcaneus) Heel - 02/22/2023 1:59 pm CLINICAL HISTORY: SMASH INJURY COMPARISON: No comparisons TECHNIQUE: Right heel, 2 views. FINDINGS: No fracture, dislocation or periosteal reaction. Small calcaneal spur. No significant dege nerative changes or erosions. No air or foreign body in the soft tissues. IMPRESSION: No acute findings of the right heel.
[2023-02-24 15:07] VITALS: BP 136/93; TEMP 97.7; O2SAT 98
== END 2023-02-22 16:07 | disposition home or self-care (01) ==
LOC: ER 12:35
DX: S90.31XA Contusion of right foot, initial encounter (principal)
CPT/HCPCS: 73650; 99282

== ENCOUNTER 2025-02-04 20:07 | Emergency (ER) | payer BC ==
--- NOTE | 2025-02-04 21:32 | RAD REPORT ---
EXAM: Foot Right 3 View HISTORY: pinky toe injury COMPARISON: None FINDINGS: Bones: Transversely oriented nonspecific fracture at the fifth proximal phalanx diaphysis. Alignment:No significant malalignment. Degenerative changes:None significant. Other: n/a IMPRESSION: Fifth proximal phalanx fracture which is nondisplaced involving the diaphysis..
--- NOTE | 2025-02-04 21:37 | EDPHYS ---
Physician Documentation [facility] Name: Jose Rudd Age: 54 yrs Sex: Male : 1970 Arrival Date: 02/04/2025 Time: 20:07 Bed 10 Private MD: ED Physician Gino Hutchison HPI: 02/04 20:16 This 54 yrs old Male presents to ER via Unassigned with complaints of Toe Injury. sb4 20:16 Patient states that he got his right pinky toe caught on a piece of furniture last sb4 night and fell to the ground. He is complaining of pain in that toe and bruising. Denies any other injuries. Is able to bear weight. Historical: - Allergies: 20:19 No Known Drug Allergies; me1 - PMHx: 20:19 acid reflux; Kidney stones; Pancreatitis; Diabetes mellitus; me1 - PSHx: 20:19 None; me1 - Immunization history:: Adult Immunizations up to date. - Infectious Disease History:: Denies. - Social history:: Smoking status: Patient denies any tobacco usage or history of. ROS: 20:16 Constitutional: Negative for fever, chills, and weight loss, sb4 20:16 MS/extremity: Positive for injury or acute deformity, contusion, decreased range of motion, pain, swelling, tenderness, of the plantar aspect of right fifth toe and right fifth toe, 20:16 All other systems are negative, Exam: 20:16 Constitutional: This is a well developed, well nourished patient who is awake, alert, sb4 and in no acute distress. Head/Face: Normocephalic, atraumatic. Eyes: Extra-ocular motions intact. Periorbital areas with no swelling, redness, or edema. ENT: Mucous membranes moist. Respiratory: No increased work of breathing, no retractions or nasal flaring. Skin: Warm, dry with normal turgor. Normal color with no rashes, no lesions, and no evidence of cellulitis. 20:16 Musculoskeletal/extremity: Ecchymosis noted to base of right pinky toe. Pain with range of motion. Good cap refill, sensation intact, pedal pulses intact. Vital Signs: 20:17 BP 132 / 97; Pulse 86; Resp 17; Temp 98.3; Pulse Ox 97% ; Weight 90.72 kg; Height 5 ft. me1 8 in. ; Pain 5/10; 21:48 BP 118 / 79; Pulse 80; Resp 15; Pulse Ox 99% on R/A; al5 20:17 Body Mass Index 30.41 (90.72 kg, 172.72 cm) me1 20:17 Pain Scale: Adult me1 MDM: 20:14 Medical Screening Exam initiated sb4 20:18 Differential diagnosis: contusion, fracture, sprain, strain. sb4 20:39 Independent interpretation of the following test(s) in the Emergency Department X-Ray: sb4 My interpretation is Right foot x-ray images, no acute fracture or dislocation. 21:35 Data reviewed: vital signs, nurses notes, radiologic studies, and as a result, I will sb4 discharge patient. Counseling: I had a detailed discussion with the patient and/or guardian regarding the historical points, exam findings, and any diagnostic results supporting the discharge/admit diagnosis, radiology results, the need for outpatient follow up, for definitive care, to return to the emergency department if symptoms worsen or persist or if there are any questions or concerns that arise at home. 02/04 20:16 Order name: Foot Right 3 View XRAY; Complete Time: 21:33 sb4 02/04 21:35 Order name: Orthopedic shoe; Complete Time: 21:48 sb4 Administered Medications: No medications were administered Disposition Summary: 02/04/25 21:36 Discharge Ordered Notes: Location: Home sb4 Problem: new sb4 Symptoms: have improved sb4 Condition: Stable sb4 Diagnosis - Nondisplaced fracture of proximal phalanx of right lesser toe(s), initial encounter sb4 for closed fracture Followup: sb4 - With: Private Physician - When: As needed - Reason: Recheck today's complaints, Re-evaluation by your physician Discharge Instructions: - Discharge Summary Sheet sb4 - Toe Fracture, [id number] sb4 Forms: - Work release form sb4 - Patient Portal Instructions sb4 - Leadership Thank You Letter sb4 Addendum: 02/05/2025 22:33 Co-signature as Attending Physician, Gino Hutchison MD I agree with the assessment s p4 and plan of care. I reviewed the patient's care provided by the Advanced Practice Provider and agree with the diagnosis and treatment plan. Signatures: Dispatcher [employer] Kathleen Sawyer PA-C PA-C sb4 Gino Hutchison MD MD sp4 Carla Fermin RN RN me1
--- NOTE | 2025-02-04 21:37 | ER ---
Nurse's Notes [facility] Name: Jose Rudd Age: 54 yrs Sex: Male : 1970 Arrival Date: 02/04/2025 Time: 20:07 Bed 10 Private MD: Diagnosis: Nondisplaced fracture of proximal phalanx of right lesser toe(s), initial encounter for closed fracture Presentation: 02/04 20:17 Chief complaint: Patient states: caught right 5th toe on a piece of furniture last me1 night. Bruising, swelling and pain noted to right 5th toe. Pain level 5/10. Coronavirus screen: Vaccine status: Patient reports receiving the 2nd dose of the covid vaccine. Ebola Screen: No symptoms or risks identified at this time. Initial Sepsis Screen: Does the patient meet any 2 criteria? No. Patient's initial sepsis screen is negative. Does the patient have a suspected source of infection? No. Patient's initial sepsis screen is negative. Risk Assessment: Do you want to hurt yourself or someone else? Patient reports no desire to harm self or others. Onset of symptoms. Onset of symptoms was February 03, 2025. 20:17 Method Of Arrival: Ambulatory me1 20:17 Acuity: TONY 4 me1 Historical: - Allergies: 20:19 No Known Drug Allergies; me1 - PMHx: 20:19 acid reflux; Kidney stones; Pancreatitis; Diabetes mellitus; me1 - PSHx: 20:19 None; me1 - Immunization history:: Adult Immunizations up to date. - Infectious Disease History:: Denies. - Social history:: Smoking status: Patient denies any tobacco usage or history of. Screenin:30 [facility] ED Fall Risk Assessment (Adult) History of falling in the last 3 months, al5 including since admission No falls in past 3 months (0 pts) Confusion or Disorientation No (0 pts) Intoxicated or Sedated No (0 pts) Impaired Gait No (0 pts) Mobility Assist Device Used No (0 pt) Altered Elimination No (0 pt) Score/Fall Risk Level 0 - 2 = Low Risk Oriented to surroundings, Maintained a safe environment, Hourly rounding (assess needs \T\ fall precautionary measures) done. Abuse screen: Denies threats or abuse. Denies injuries from another. Nutritional screening: No deficits noted. Tuberculosis screening: No symptoms or risk factors identified. Assessment: 20:30 General: Appears in no apparent distress. uncomfortable, Behavior is calm, cooperative. al5 Pain: Complains of pain in right fifth toe Pain currently is 5 out of 10 on a pain scale. Neuro: Level of Consciousness is awake, alert, obeys commands, Oriented to person, place, time, situation. Cardiovascular: Capillary refill < 3 seconds Patient's skin is warm and dry. Respiratory: Airway is patent Respiratory effort is even, unlabored, Respiratory pattern is regular, symmetrical. GI: No signs and/or symptoms were reported involving the gastrointestinal system. : No signs and/or symptoms were reported regarding the genitourinary system. EENT: No signs and/or symptoms were reported regarding the EENT system. Derm: Skin is intact, Skin is pink, warm \T\ dry. normal, Bruising that is on right fifth toe. Musculoskeletal: Circulation, motion, and sensation intact. Range of motion: intact in all extremities, Reports pain in right fifth toe. 21:23 Reassessment: Patient appears in no apparent distress at this time. No changes from al5 previously documented assessment. Patient and/or family updated on plan of care and expected duration. Pain level reassessed. Patient is alert, oriented x 3, equal unlabored respirations, skin warm/dry/pink. 21:48 Reassessment: Patient appears in no apparent distress at this time. No changes from al5 previously documented assessment. Patient and/or family updated on plan of care and expected duration. Pain level reassessed. Patient is alert, oriented x 3, equal unlabored respirations, skin warm/dry/pink. Vital Signs: 20:17 BP 132 / 97; Pulse 86; Resp 17; Temp 98.3; Pulse Ox 97% ; Weight 90.72 kg; Height 5 ft. me1 8 in. ; Pain 5/10; 21:48 BP 118 / 79; Pulse 80; Resp 15; Pulse Ox 99% on R/A; al5 20:17 Body Mass Index 30.41 (90.72 kg, 172.72 cm) me1 20:17 Pain Scale: Adult me1 ED Course: 20:11 Patient arrived in ED. gm2 20:14 Kathleen Garcia PA-C is [facility]. sb4 20:14 Gino Hutchison MD is Attending Physician. sb4 20:19 Triage completed. me1 20:19 Arm band placed on Patient placed in an exam room. me1 20:29 Kandice Whaley, RN is Primary Nurse. kb4 20:30 Patient has correct armband on for positive identification. Bed in low position. Call al5 light in reach. Provided Education on: plan of care. 20:30 No provider procedures requiring assistance completed. Patient did not have IV access al5 during this emergency room visit. 21:03 Foot Right 3 View XRAY In Process Unspecified. EDMS 21:48 Ortho shoe applied to right foot. al5 Administered Medications: No medications were administered Medication: 20:30 VIS not applicable for this client. al5 Outcome: 21:36 Discharge ordered by . sb4 21:48 Discharged to home ambulatory, al5 21:48 Condition: good 21:48 Discharge instructions given to patient, Instructed on discharge instructions, follow up and referral plans. Demonstrated understanding of instructions, follow-up care, 21:49 Patient left the ED. al5 Signatures: Dispatcher [employer] EDLA Kathleen Garcia, PA-C PA-C sb4 Carla Fermin, RN RN me1 Lillian Daniel gm2 Scarlet Cain RN RN al5 Kandice Whaley, RN RN kb4
[2025-02-04 22:11] VITALS: TEMP 98.3
[2025-02-04 22:13] VITALS: BP 118/79; O2SAT 99
== END 2025-02-04 21:49 | disposition home or self-care (01) ==
LOC: ER 20:07
DX: S92.504A Nondisplaced unspecified fracture of right lesser toe(s), initial encounter for closed fracture (principal); E11.9 Type 2 diabetes mellitus without complications; K21.9 Gastro-esophageal reflux disease without esophagitis; K85.90 Acute pancreatitis without necrosis or infection, unspecified; W22.8XXA Striking against or struck by other objects, initial encounter; Y93.9 Activity, unspecified; Y92.019 Unspecified place in single-family (private) house as the place of occurrence of the external cause
CPT/HCPCS: 99283